=== PATIENT | male | born 1960 | race Caucasian/White ===

== ENCOUNTER 2018-03-28 05:18 | Day surgery (SDC) | payer OTHER ==
[~2018-03-28] VITALS: Ht 180.3 cm; Wt 93.9 kg
[~2018-03-28 05:18] MED LIST: ALLERGY DROPS PO; PROAIR HFA8.5 GM INH; SINGULAIR 10 MG10 M1 PO; [UNRECOGNIZED DRUG - OTHER] PO
[2018-03-28 10:24] VITALS: BP 148/85
--- NOTE | 2018-03-28 12:18 | H ---
[facility] [place] [address] HISTORY AND PHYSICAL Name: LARRY DAMIAN Srinath Room #: 150-4 [facility]..#: [id number] Admission: 03/28/18 Attend Phys: Michelet Vasquez MD Discharge: Date of : 58 Report #: [id number] THIS REPORT FOR: //name// CC: MIKA Vasquez Physician staff ANTICIPATED DATE OF SURGERY: 03/28/2018. CHIEF COMPLAINT: Chronic sinusitis with polyposis. HISTORY OF PRESENT ILLNESS: The patient is a 57-year-old male with a longstanding history of chronic rhinosinusitis and nasal polyposis. Previously, he has had sinus surgery and medical therapy for his chronic sinusitis. Previous sinus surgery was accomplished in 2013. At that time, that had been a revision surgery in 2013. At that time, he has some severe amount of nasal polyposis that not responded to therapy and previous allergy treatment had been unimpressive. The patient is recently tried oral steroids without any substantial resolution and a recent sinus CT demonstrated continued evidence of chronic rhinosinusitis with nasal polyposis. Based on these findings, the patient was given the option of continued medical management of his condition or revision sinus surgery. The risks involved with revision sinus surgery were discussed with the patient in detail and he understands the risks involved as well as the options for continued medical therapy with a plan at this time is for revision sinus surgery under general anesthesia. ALLERGIES TO MEDICATION: SHELLFISH and IBUPROFEN. MEDICATIONS ON ADMISSION: Include ProAir, Singulair and testosterone. PAST MEDICAL AND SURGICAL HISTORY: As noted above for sinus surgery and knee surgery. SOCIAL HISTORY: Notable for use of tobacco products. FAMILY HISTORY: Notable for heart disease and prostate cancer in his father. PHYSICAL EXAMINATION: VITAL SIGNS: Height of 5 feet 11 inches and weight 200 pounds. HEENT: Demonstrates nasal polyposis in the ethmoid and middle meatus regions bilaterally with degeneration of the middle turbinates. Obscuration of view of the frontal sinus region and the sphenoid ethmoid recess was also noted. CT scan confirms these above findings. ASSESSMENT: History of chronic rhinosinusitis with nasal polyposis. [facility] [address] [place] [address] HISTORY AND PHYSICAL Name: RICKIELARRY Srinath Room #: 150-4 [facility]#: [id number] Admission: 03/28/18 Attend Phys: Michelet Vasquez MD Discharge: Date of : 58 Report #: [id number] PLAN: Will be for the above-mentioned surgical intervention. <ELECTRONICALLY SIGNED> By: Michelet Vasquez MD 03/28/18 1218 0849 [id number] Michelet Vasquez MD /nt
--- NOTE | 2018-03-31 09:14 | O ---
[facility] [place] [address] OPERATIVE REPORT Name: LARRY DAMIAN Room #: DEP [facility].#: [id number] Admission: 03/28/18 Attend Phys: Michelet Vasquez MD Discharge: 03/28/18 Date of : 58 Report #: [id number] THIS REPORT FOR: //name// CC: MIKA Vasquez Physician staff DATE OF SERVICE: 03/28/2018 PREOPERATIVE DIAGNOSES: Nasal polyposis, pansinusitis. POSTOPERATIVE DIAGNOSES: Nasal polyposis, pansinusitis. PROCEDURE: Revision image-guided endoscopic nasal polypectomy, bilateral total ethmoidectomies and bilateral nasal antral windows. SURGEON: Michelet Vasquez M.D. ANESTHESIA: General LMA. INDICATIONS: See H and P. FINDINGS: Nasal polyps were noted in both the left and the right side, more severe on the left side, down to the level of the inferior turbinate on the left and to the level of the inferior aspect of the middle turbinate on the right. There was total demineralization of the left middle turbinate. Polyps were noted on the left and right side of the septum as well as in the sphenoid ethmoid recess on the left side. The right middle turbinate remains intact and mineralized. TECHNIQUE: After obtaining consent, he was brought to the operating suite, appropriate time-out was performed. General LMA anesthesia was obtained. The bed was turned 90 degrees, placed in slight head-up position. The LandmarX device was attached to the forehead. Appropriate fiducial points were registered and accuracy was confirmed prior to use. During the case, I used the image guidance from both the microdebrider as well as on the suction hand pieces. This was in identifying the important landmarks. A 3 mL of 1% Xylocaine and 1:100,000 epinephrine was injected in the nasal polyps. Afrin on cottonoids was placed in each side of the nares. The head was draped in the usual sterile fashion. A 0-degree scope was introduced into the left naris. Pre-removal photos were taken. Initially using a 12-degree microdebrider blade, a nasal polypectomy was performed, removing the polyps up to the level of the upper root of the inferior turbinate. At that point, I came across what I thought was the remnant of the middle turbinate. I [address] [address] OPERATIVE REPORT Name: LARRY DAMIAN Room #: DEP [facility] M.R.#: [id number] Admission: 03/28/18 Attend Phys: Michelet Vasquez MD Discharge: 03/28/18 Date of : 58 Report #: [id number] continued with the polypectomy in this area along the nasal wall, proceeding towards the middle turbinate remnant. At that point, using a double-ball probe, I was able to enter into the maxillary ostia. This was enlarged with both the side biter as well as the microdebrider. At that point, I continued with the polypectomy and started the ethmoidectomy proceeding in an hgrahkia-dn-gdmejomju direction back to the sphenoid face. A number of large polyps were noted in the sphenoid ethmoid recess and removed with microdebrider. Finding the large amount of the middle turbinate was demineralized, I removed the inferior half of this with a microdebrider as well. I then continued superiorly until I entered into some fresh air cells that did not have any polyps present in them. This was more in the posterior aspect. I followed this forward anteriorly, again cleaning out what appeared to be normal-appearing mucosa and ethmoid air cells at that time. The frontal ethmoid recess area was cleaned as much as possible of polypoid debris. Frontal sinus orifices probed patent with the frontal sinus probe. Hemostatic pack was placed on this side. I turned my attention to the right side, where a similar procedure was performed. First with the polypectomy, I did clear up the polyps to the level of the inferior turbinate. The middle turbinate was identified on this side and could be palpated quite easily. It was medialized and I have performed a revision ethmoidectomy on this side. It was noted the uncinate process from that was still present. It was very polypoid, so it was taken down. Again, a nasal antral window was opened on this side in a similar fashion and I continued in an kykntctp-er-dicwzufdn direction, opening the ethmoid air cells including several that have not been previously opened more laterally. I proceeded back towards the sphenoid face, where I encountered normal-appearing mucosa and ethmoid air cells. I then turned more superiorly. Again, not all the way up to the fovea ethmoidalis, but I did encounter some normal ethmoid air cells with normal-appearing mucosa without polyps. A hemostatic pack was placed on this side. I then returned several times to both the right and left side, removing a little bit of devitalized bone and cleaning up the mucosal rough edges to satisfaction. At that point, I inspected the ethmoid defects. There was no active CSF rhinorrhea noted. There is no orbital fat herniation. Due to THE PATIENT'S ALLERGY TO SHELLFISH, I placed a piece of Merogel between the middle turbinate remnant and the lateral nasal wall on the left side, filled the nasal cavity and ethmoid defect with Stammberger foam and then placement of a piece of Merogel, tucking this up against the inferior aspect of the middle turbinate remnant. A similar procedure was performed on the right side only using a single piece of Merogel in the ethmoid defect for scar prevention. At that point, the nasopharynx was suctioned free of secretions. He was returned to anesthesia, [facility] [address] [place] [address] OPERATIVE REPORT Name: LARRY DAMIAN Room #: DEP [facility].#: [id number] Admission: 03/28/18 Attend Phys: Michelet Vasquez MD Discharge: 03/28/18 Date of : 58 Report #: [id number] where is lightened from anesthesia, extubated and taken to the recovery room in stable condition. Estimated blood loss was 250 mL. <ELECTRONICALLY SIGNED> By: Michelet Vasquez MD 03/31/18 0914 1217 1308 Michelet Vasquez MD /nt
--- NOTE | 2018-04-01 09:11 | PATH ---
[facility] [address] [place] [address] PATHOLOGY RPT PROCEDURE Name: LARRY DAMIAN Room #: DEP [facility]..#: [id number] Admission: 03/28/18 Date of : 58 Discharge: 03/28/18 Report #: [id number] Path Case #: [id number] [facility] Accession Number: [id number] . 01 Material submitted: . BILATERAL SINUS CONTENTS . 01 Clinical history: . Chronic pansinusitis . 02 Diagnosis: Sinus mucosa and submucosa, "bilateral sinus contents": - Moderate acute and chronic sinusitis with edema, congestion and acute and chronic inflammation. . (SHA:mml; 03/31/2018) QLM/03/31/2018 . 02 Electronically signed: . Maurisio Buckley MD, Pathologist NPI- [id number] . 01 Gross description: . Received in formalin labeled "Larry Damian, bilateral sinus contents," is a 5.5 x 8.3 x 2.4 cm aggregate of multiple fragments of noguera membranous tissue admixed with small fragments of possible bone. Production Sampler tissue is submitted in cassette A1, following decalcification. (TSD; 03/28/2018) TOB/TOB . 02 Pathologist provided ICD-10: J32.9 . 02 CPT . 359754, 265385 Specimen Comment: A courtesy copy of this report has been sent to Specimen Comment: [phone], . Specimen Comment: Report sent to / DR TEJADA Specimen Comment: A duplicate report has been generated due to demographic updates. Performed at: 01 [facility] [id number] [address] [id number] MD Aron Mcqueen MD Phone: [phone] Performed at: [address] [id number] [address] [address] PATHOLOGY RPT PROCEDURE Name: RICKIELARRY Yo Room #: DEP [facility] Nick#: [id number] Admission: 03/28/18 Date of : 58 Discharge: 03/28/18 Report #: [id number] Path Case #: [id number] MD Cecille Wallace MD Phone: [phone]
== END 2018-03-28 13:40 | disposition home or self-care (01) ==
LOC: TBA 05:18 → OR 05:18 → TBA 05:19 → OR 09:06
DX: J32.4 Chronic pansinusitis (principal); J33.9 Nasal polyp, unspecified; J01.90 Acute sinusitis, unspecified; Z88.8 Allergy status to other drugs, medicaments and biological substances; Z79.899 Other long term (current) drug therapy; F17.210 Nicotine dependence, cigarettes, uncomplicated; Z82.49 Family history of ischemic heart disease and other diseases of the circulatory system; Z80.42 Family history of malignant neoplasm of prostate; Z98.890 Other specified postprocedural states
CPT/HCPCS: 50010; 50101; 50286; 50386; 50398; 50573; 52290; 52291; 53635; 54164; 62110; 62900; 70005